=== PATIENT | female | born 1940 | race African-American/Black ===

== ENCOUNTER 2018-01-10 10:52 | Day surgery (SDC) | payer OTHER ==
[2018-01-10] MEDS ORDERED: PROPOFOL 20 ML ONE (11:29)
[2018-01-10 11:52] VITALS: BMI 20.5
[2018-01-10 15:25] VITALS: TEMP 98
[2018-01-10 15:26] VITALS: BP 141/74; PULSE 84
--- NOTE | 2018-01-12 13:59 | PATH ---
Surgical Pathology Report Patient Name: [facility]. Rec. #: [id number] /Age/Gender: 1940 (Age: 77) / F Account: [id number] Location: [facility]OSCOPY Taken: 01/10/2018 Received: 01/10/2018 Reported: 01/12/2018 Physicians: Linda Oliva M.D. 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 IMMUNOHISTOCHEMICAL STAIN FOR H. PYLORI IS NEGATIVE. Electronically Signed Linda Palm M.D. Gross Description Received in formalin, labeled "antrum" is a sahu, irregular portion of soft tissue measuring 0.5 cm. in greatest dimension. The specimen is submitted in toto in one cassette. /01/11/201801/11/2018
== END 2018-01-10 15:50 ==
LOC: FASU-ENDO 10:52
PROVIDERS: ATTEND Internal Medicine Gastroenterology
PROC: 0DB68ZX Excision of Stomach, Via Natural or Artificial Opening Endoscopic, Diagnostic (ICD-10-PCS; principal; 2018-01-10 12:30)
DX: D64.9 Anemia, unspecified (principal); K29.50 Unspecified chronic gastritis without bleeding
CPT/HCPCS: 88305-TC; 88342-TC